=== PATIENT | male | born 1965 | race Hispanic/Latino ===

== ENCOUNTER 2018-12-02 15:44 | Emergency (ER) | payer BC, OTHER ==
[~2018-12-02] VITALS: Ht 180.3 cm; Wt 111.1 kg
--- OUTSIDE RECORDS SUMMARY | 2018-12-02 15:48 | XMS REPORT | Encounter Summary ---
Author Organization Unknown Address [address] [place] [address] Phone [phone] Reason for Visit Medical Complaint Instructions None recorded. Discussion Note: None recorded. Patient educational handouts: No information available. Plan of Care Reminders Provider Appointments None recorded. Lab None recorded. Referral None recorded. Procedures None recorded. Surgeries None recorded. Imaging None recorded. Medications Name Start Date acetaminophen 300 mg-codeine 30 mg tablet anastrozole 1 mg tablet TAKE TWO (2) TABLET(S) BY MOUTH AT 48 HOURS AFTER WEEKLY TRT INJECTIONS. chlorpromazine 50 mg tablet clobetasol 0.05 % topical cream doxepin 5 % topical cream enoxaparin 40 mg/0.4 mL subcutaneous syringe INJECT ONE (1) SYRINGE SUBCUTANEOUSLY ONCE A DAY. fluocinonide 0.1 % topical cream hydrocodone 10 mg-acetaminophen 325 mg tablet ketorolac 10 mg tablet lidocaine 5 % topical ointment lisinopril 5 mg tablet metaxalone 800 mg tablet metformin ER 500 mg tablet,extended release 24 hr naproxen sodium 550 mg tablet Medications Administered None recorded. Vitals None recorded. Lab Results None recorded. Allergies Code Code System Name Reaction Severity Status Onset NKDA Problems Name Status Onset Date Source Eustachian Tube Disorder Active Encounter Otitis Media Active Encounter Common Cold Active Encounter Acute Maxillary Sinusitis Active Encounter Acute Upper Respiratory Infection Active Encounter Allergic Rhinitis Active Encounter Urinary Tract Infectious Disease Active Encounter Low Back Pain Active Encounter Spasm Active Encounter Right Flank Pain Active Encounter Procedures Date Name Performed by Anesth Biceps Tendon Repair Information not available Meniscal Trnspl Knee W/scpe Information not available Vaccine List None recorded. Social History Smoking Status Never Smoker Past Encounters 01/19/2018 LUCIANA Gar-C: [address] [facility] [place] [address], Ph. History of Present Illness None recorded. Review of Systems None recorded. Physical Exam None recorded.
--- OUTSIDE RECORDS SUMMARY | 2018-12-02 15:48 | XMS REPORT | Encounter Summary ---
Author Organization Unknown Address [address] [place] [address] Phone [phone] Reason for Visit Medical Complaint Instructions 1. Acute otitis externa skjyzbqg-zkqlajbei-itpnyakpu 3.5 mg/mL-10,000 unit/mL-1 % ear solution 2. Tachycardia Discussion Note: None recorded. Patient educational handouts: No information available. Plan of Care Patient Instructions use drops as directed. follow up pcp Reminders Provider Appointments None recorded. Lab None recorded. Referral None recorded. Procedures None recorded. Surgeries None recorded. Imaging None recorded. Medications Name Start Date whyqcdze-aifqrgode-cnazbftcs 3.5 mg/mL-10,000 unit/mL-1 % ear solution INSTILL 4 DROPS INTO LEFT EAR(S) BY OTIC ROUTE 3 TIMES PER DAY Medications Administered None recorded. Vitals Height Weight BMI Blood Pressure 5 ft 11 in 235 lbs 32.8 kg/m2 130/80 mm[Hg] Lab Results None recorded. Allergies Code Code System Name Reaction Severity Onset NKDA Problems Name Status Onset Date [...] History Smoking Status Never Smoker Past Encounters 02/16/2017 Acute Otitis Externa; Tachycardia Polo Tovar, [facility]: [address] [place] [address], Ph. History of Present Illness Ear Complaint Reported By: Patient HPI: Location: left. Quality: ears feel full/plugged, muffled. Severity: continuous. Duration: constant. Onset/Timing: still present. Context: no sick contacts, no recent swimming/water in ear, no exposure to second hand smoke, no head trauma, not grinding teeth, no recent air travel. Modifying factors: does not hurt to lie on, or pull on ear, does not hurt to chew. Associated Symptoms: no discharge from the ears, no nose/sinus problems, no popping noise in the ears, no ringing in the ears, no fever, no chills, no dizziness, no vertigo, no headache, no muscle aches, hearing loss, earache Review of Systems:ROS as noted in the HPI Review of Systems Basic Reported By: Patient Physical Exam Adult Basic, Adult Male Complete Reported By: Patient Constitutional: General Appearance: healthy-appearing, well-nourished, well-developed. Level of Distress: NAD. Ambulation: ambulating normally Psychiatric: Mental Status: active and alert Eyes: Lids and Conjunctivae: non-injected, no discharge Ywl-Ohfm-Zveah-Throat: Ears: no lesions on external ear, no outer ear tenderness, EACs clear, TMs clear, TM mobility normal; left ear canal erythema. Hearing: no hearing loss. Nose: no lesions on external nose, nares patent, no septal deviation, nasal passages clear, no sinus tenderness, no nasal discharge. Lips, Teeth, and Gums: no mouth or lip ulcers. Oropharynx: moist mucous membranes, no erythema, no exudates, tonsils not enlarged Neck: Neck: trachea midline. Lymph Nodes: no cervical LAD Lungs: Respiratory effort: no dyspnea, no tachypnea, no use of accessory muscles, no intercostal retractions. Auscultation: breath sounds normal, good air movement Cardiovascular: Heart Auscultation: no murmurs, tachycardia
--- OUTSIDE RECORDS SUMMARY | 2018-12-02 15:48 | XMS REPORT | Continuity of Care Document ---
Author Author [facility] Interface Address Unknown Phone Unavailable Problems Problem Status Onset Date Classification Date Reported Comments Source Body mass index 30+ - obesity 09/30/2018 Diagnosis 10/08/2018 [facility] Elevated blood-pressure reading without diagnosis of hypertension 09/30/2018 Diagnosis 10/08/2018 [facility] Immunization due 09/30/2018 Diagnosis 10/08/2018 [facility] Influenza-like illness 09/30/2018 Diagnosis 10/08/2018 [facility] Nausea and vomiting 09/30/2018 Diagnosis 10/08/2018 [facility] Acute otitis externa 02/16/2017 Diagnosis 02/17/2017 [facility] Tachycardia 02/16/2017 Diagnosis 02/17/2017 [facility] Urinary tract infectious disease 06/04/2016 Diagnosis 06/04/2016 [facility] Right flank pain 06/04/2016 Diagnosis 06/04/2016 [facility] Acute upper respiratory infection 05/01/2016 Diagnosis 05/01/2016 [facility] Acute maxillary sinusitis 05/01/2016 Diagnosis 05/01/2016 [facility] Eustachian tube disorder 02/11/2016 Diagnosis 02/11/2016 [facility] Allergic rhinitis 02/11/2016 Diagnosis 02/11/2016 [facility] Eustachian Tube Disorder Problem 01/20/2018 [facility] Otitis Media Problem 01/20/2018 [facility] Common Cold Problem 01/20/2018 [facility] Acute Maxillary Sinusitis Problem 01/20/2018 [facility] Acute Upper Respiratory Infection Problem 01/20/2018 [facility] Allergic Rhinitis Problem 01/20/2018 [facility] Urinary Tract Infectious Disease Problem 01/20/2018 [facility] Low Back Pain Problem 01/20/2018 [facility] Spasm Problem 01/20/2018 [facility] Right Flank Pain Problem 01/20/2018 [facility] Medications Medication Details Route Status Patient Instructions Ordering Provider Order Date Source Hydrocortisone 10 MG/ML / Neomycin 3.5 MG/ML / Polymyxin B 23955 UNT/ML Otic Solution zyudzcad-swqnsmbyu-xsolxuzbh 3.5 mg/mL-10,000 unit/mL-1 % ear solution INSTILL 4 DROPS INTO LEFT EAR(S) BY OTIC ROUTE 3 TIMES PER DAY Active [facility] Acetaminophen 300 MG / Codeine Phosphate 30 MG Oral Tablet acetaminophen 300 mg-codeine 30 mg tablet Active [facility] anastrozole 1 MG Oral Tablet anastrozole 1 mg tablet TAKE TWO (2) TABLET(S) BY MOUTH AT 48 HOURS AFTER WEEKLY TRT INJECTIONS. Active [facility] Chlorpromazine hydrochloride 50 MG Oral Tablet chlorpromazine 50 mg tablet Active [facility] Clobetasol Propionate 0.5 MG/ML Topical Cream clobetasol 0.05 % topical cream Active [facility] Doxepin Hydrochloride 50 MG/ML Topical Cream doxepin 5 % topical cream Active [facility] 0.4 ML Enoxaparin sodium 100 MG/ML Prefilled Syringe enoxaparin 40 mg/0.4 mL subcutaneous syringe INJECT ONE (1) SYRINGE SUBCUTANEOUSLY ONCE A DAY. Active [facility] Fluocinonide 1 MG/ML Topical Cream fluocinonide 0.1 % topical cream Active [facility] Acetaminophen 325 MG / Hydrocodone Bitartrate 10 MG Oral Tablet hydrocodone 10 mg-acetaminophen 325 mg tablet Active [facility] Ketorolac Tromethamine 10 MG Oral Tablet ketorolac 10 mg tablet Active [facility] Lidocaine 0.05 MG/MG Topical Ointment lidocaine 5 % topical ointment Active [facility] Lisinopril 5 MG Oral Tablet lisinopril 5 mg tablet Active [facility] metaxalone 800 MG Oral Tablet metaxalone 800 mg tablet Active [facility] 24 HR Metformin hydrochloride 500 MG Extended Release Oral Tablet metformin ER 500 mg tablet,extended release 24 hr Active [facility] Naproxen sodium 550 MG Oral Tablet naproxen sodium 550 mg tablet Active [facility] benzonatate 200 MG Oral Capsule benzonatate 200 mg capsule Take 1 capsule 3 times a day by oral route for 7 days. Active [facility] Ondansetron 8 MG Disintegrating Oral Tablet ondansetron [address] 1 tablet every 8 hours by translingual route for 2 days. Active [facility] Oseltamivir 75 MG Oral Capsule [Tamiflu] Tamiflu 75 mg capsule Take 1 capsule twice a day by oral route for 5 days. Active [facility] Medrol (Woodrow) 4 mg tablets in a dose pack Medrol (Woodrow) 4 mg tablets in a dose pack Take as directed on package. Active [facility] 200 ACTUAT Azelastine hydrochloride 0.137 MG/ACTUAT Nasal Inhaler azelastine 137 mcg (0.1 %) nasal spray aerosol Garner 2 spray(s) twice a day by intranasal route as directed. Active [facility] Prednisone 20 MG Oral Tablet prednisone 20 mg tablet Take 1 tablet(s) twice a day by oral route with meals for 4 days. Active [facility] levocetirizine dihydrochloride 5 MG Oral Tablet [Xyzal] Xyzal 5 mg tablet Take 1 tablet(s) every day by oral route at bedtime for 30 days. Active [facility] Amoxicillin 875 MG / Clavulanate 125 MG Oral Tablet [Augmentin] Augmentin 875 mg-125 mg tablet Take 1 tablet every 12 hours by oral route with meals for 7 days. Active [facility] Brompheniramine Maleate 0.4 MG/ML / Dextromethorphan Hydrobromide 2 MG/ML / Pseudoephedrine Hydrochloride 6 MG/ML Oral Solution [Bromfed DM] Bromfed DM 2 mg-30 mg-10 mg/5 mL syrup Take 10 mL every 6 hours by oral route as needed for cough. Active [facility] Amoxicillin 875 MG / Clavulanate 125 MG Oral Tablet amoxicillin 875 mg-potassium clavulanate 125 mg tablet Active [facility] Sulfamethoxazole 800 MG / Trimethoprim 160 MG Oral Tablet [Bactrim] Bactrim DS 800 mg-160 mg tablet Take 1 tablet twice a day by oral route with meals for 10 days. Active [facility] Brompheniramine Maleate 0.4 MG/ML / Dextromethorphan Hydrobromide 2 MG/ML / Pseudoephedrine Hydrochloride 6 MG/ML Oral Solution pdbugqyecfkydnj-adnqzwoqntujfzw-LM 2 mg-30 mg-10 mg/5 mL syrup Active [facility] Allergies, Adverse Reactions, Alerts Substance Category Reaction Severity Reaction type Status Date Reported Comments Source Immunizations Immunization Date Given Site Status Last Updated Comments Source Results Order Name Results Value Reference Range Date Interpretation Comments Source Influenza A negative 09/29/2018 [facility] Influenza B negative 09/29/2018 [facility] Urinalysis macro (dipstick) panel - Urine COLOR : Yellow 06/04/2016 [facility] Urinalysis macro (dipstick) panel - Urine CLARITY : Clear 06/04/2016 [facility] Urinalysis macro (dipstick) panel - Urine LEUKOCYTES : Small 06/04/2016 [facility] Urinalysis macro (dipstick) panel - Urine NITRITES : Negative 06/04/2016 [facility] Urinalysis macro (dipstick) panel - Urine UROBILINOGEN : Normal 06/04/2016 [facility] Urinalysis macro (dipstick) panel - Urine PROTEIN : Trace 06/04/2016 [facility] Urinalysis macro (dipstick) panel - Urine pH : 7.0 06/04/2016 [facility] Urinalysis macro (dipstick) panel - Urine BLOOD : Negative 06/04/2016 [facility] Urinalysis macro (dipstick) panel - Urine SPECIFIC GRAVITY : 1.010 06/04/2016 [facility] Urinalysis macro (dipstick) panel - Urine KETONES : Negative 06/04/2016 [facility] Urinalysis macro (dipstick) panel - Urine BILIRUBIN : Negative 06/04/2016 [facility] Urinalysis macro (dipstick) panel - Urine GLUCOSE Negative 06/04/2016 [facility] Vital Signs Vital Sign Value Date Comments Source Diastolic (mm Hg) 82 09/29/2018 [facility] Height 71 09/29/2018 [facility] Systolic (mm Hg) 120 09/29/2018 [facility] Weight 233 09/29/2018 [facility] Diastolic (mm Hg) 80 02/16/2017 [facility] Height 71 02/16/2017 [facility] Systolic (mm Hg) 130 02/16/2017 [facility] Weight 235 02/16/2017 [facility] Diastolic (mm Hg) 70 06/04/2016 [facility] Height 71 06/04/2016 [facility] Systolic (mm Hg) 120 06/04/2016 [facility] Weight 238 06/04/2016 [facility] Diastolic (mm Hg) 80 05/01/2016 [facility] Height 71 05/01/2016 [facility] Systolic (mm Hg) 130 05/01/2016 [facility] Weight 248 05/01/2016 [facility] Diastolic (mm Hg) 80 02/11/2016 [facility] Height 71 02/11/2016 [facility] Systolic (mm Hg) 134 02/11/2016 [facility] Weight 235 02/11/2016 [facility] Diastolic (mm Hg) 83 12/12/2015 [facility] Height 71 12/12/2015 [facility] Systolic (mm Hg) 140 12/12/2015 [facility] Weight 241 12/12/2015 [facility] Encounters Location Location Details Encounter Type Encounter Number Reason For Visit Attending Provider ADM Date DC Date Status Source [place] - [facility] - [id number] Alix La, GAUGE MACHINE OPERATOR: [address] [place] [address], Ph. [id number] Alix Tovar 12/12/2015 [facility] [place] [facility] - [id number] Alix Tovar, GAUGE MACHINE OPERATOR: [address] [place] [address], Ph. [id number] Alix Tovar 02/11/2016 [facility] [place] [facility] - [id number] Alix Tovar, GAUGE MACHINE OPERATOR: [address] [place] [address], Ph. [id number] Alix Tovar 05/01/2016 [facility] [place] [facility] - [id number] Venessa Mendoza, GAUGE MACHINE OPERATOR: [address] [place] [address], Ph. [phone] [id number] Venessa Mendoza 06/04/2016 [facility] [place] - [facility] - [id number] FUNMILAYO WooP-C: [address] [place] [address], Ph. [phone] [id number] Polo Tovar 02/16/2017 [facility] [place] [facility] - [id number] Tabitha Orellanaroy, GAU[employer] MACHINE OPERATOR-C: [address] [place] [address], Ph. [id number] Tabitha Soliman 01/19/2018 [facility] [place] [facility] - [id number] Mahnaz Gillespie, GAUGE MACHINE OPERATOR-C: [address] [place] [address], Ph. [id number] Mahnaz Gillespie 09/29/2018 [facility] [place] [facility] - [id number] Mahnaz Gillespie, [employer] MACHINE OPERATOR-C: [address] [place] [address], Ph. [id number] Mahnaz Gillespie 09/29/2018 [facility] Procedures Procedure Code Date Perfomer Comments Source Anesth Biceps Tendon Repair [facility] Meniscal Trnspl Knee W/scpe [facility] Anesth Biceps Tendon Repair 30114 [facility] Meniscal Trnspl Knee W/scpe [address] [facility] Shoulder Joint Surgery [address] [facility]
--- OUTSIDE RECORDS SUMMARY | 2018-12-02 15:48 | XMS REPORT | Encounter Summary ---
Author Organization Unknown Address [address] [place] [address] Phone [phone] Reason for Visit Medical Complaint Instructions 1. Influenza-like illness Tamiflu 75 mg capsule benzonatate 200 mg capsule influenza (flu): care instructions rapid flu (A+B) 2. Nausea and vomiting nausea and vomiting: care instructions ondansetron 8 mg disintegrating tablet 3. Immunization due 4. Elevated blood-pressure reading without diagnosis of hypertension elevated blood pressure: care instructions 5. Body mass index 30+ - obesity body mass index: care instructions Discussion Note Take charge of your health handout given and discussed. SE of medictions discussed and pt verbalized understanding. Plan of Care Patient Instructions How can you care for yourself at home? Get plenty of rest. Drink plenty of fluids, enough so that your urine is light yellow or clear like water. If you have kidney, heart, or liver disease and have to limit fluids, talk with your doctor before you increase the amount of fluids you drink. Take an fkou-oph-moyhwdm pain medicine if needed, such as acetaminophen (Tylenol), ibuprofen (Advil, Motrin), or naproxen (Aleve), to relieve fever, headache, and muscle aches. Read and follow all instructions on the label. No one younger than 20 should take aspirin. It has been linked to Amanda syndrome, a serious illness. Do not smoke. Smoking can make the flu worse. If you need help quitting, talk to your doctor about stop-smoking programs and medicines. These can increase your chances of quitting for good. Breathe moist air from a hot shower or from a sink filled with hot water to help clear a stuffy nose. Before you use cough and cold medicines, check the label. These medicines may not be safe for young children or for people with certain health problems. If the skin around your nose and lips becomes sore, put some petroleum jelly on the area. To ease coughing: Drink fluids to soothe a scratchy throat. Suck on cough drops or plain hard candy. Take an yftr-bmu-tbqqsrr cough medicine that contains dextromethorphan to help you get some sleep. Read and follow all instructions on the label. Raise your head at night with an extra pillow. This may help you rest if coughing keeps you awake. Take any prescribed medicine exactly as directed. Call your doctor if you think you are having a problem with your medicine. To avoid spreading the flu Wash your hands regularly, and keep your hands away from your face. Stay home from school, work, and other public places until you are feeling better and your fever has been gone for at least 24 hours. The fever needs to have gone away on its own without the help of medicine. Ask people living with you to talk to their doctors about preventing the flu. They may get antiviral medicine to keep from getting the flu from you. To prevent the flu in the future, get a flu vaccine every fall. Encourage people living with you to get the vaccine. Cover your mouth when you cough or sneeze. When should you call for help? Call 911 anytime you think you may need emergency care. For example, call if: You have severe trouble breathing. Call your doctor now or seek immediate medical care if: You have new or worse trouble breathing. You seem to be getting much sicker. You feel very sleepy or confused. You have a new or higher fever. You get a new rash. Watch closely for changes in your health, and be sure to contact your doctor if: You begin to get better and then get worse. You are not getting better after 1 week. Reminders Provider Appointments None recorded. Lab Rapid Flu (A+B) 10/08/2018 [facility] Referral None recorded. Procedures None recorded. Surgeries None recorded. Imaging None recorded. Medications Name Start Date anastrozole 1 mg tablet TAKE TWO (2) TABLET(S) BY MOUTH AT 48 HOURS AFTER WEEKLY TRT INJECTIONS. benzonatate 200 mg capsule Take 1 capsule 3 times a day by oral route for 7 days. ondansetron [address] 1 tablet every 8 hours by translingual route for 2 days. Tamiflu 75 mg capsule Take 1 capsule twice a day by oral route for 5 days. Medications Administered None recorded. Vitals Height Weight BMI Blood Pressure 5 ft 11 in 233 lbs 32.5 kg/m2 (1) 120/82 mm[Hg] (2) 120/82 mm[Hg] Lab Results Date Name Specimen Result Interpretation Description Value Range Status Address Rapid Flu (A+B) Influenza a negative [facility]: [address] [place] [address] Influenza B negative [facility]: [address] [place] [address] Allergies Code Code System Name Reaction Severity Status Onset NKDA Problems No Known Problems Procedures Date Name Performed by Shoulder Joint Surgery Information not available Anesth Biceps Tendon Repair Information not available Meniscal Trnspl Knee W/scpe Information not available Vaccine List None recorded. Social History Smoking Status Never Smoker Past Encounters 09/29/2018 Influenza-like Illness; Nausea and Vomiting; Immunization Due; Elevated Blood- pressure Reading without Diagnosis of Hypertension; Body Mass Index 30+ - Obesity Arielareva GarnerFUNMILAYO rodriguezP-C: [address] [place] [address], Ph. History of Present Illness Dajkwnr-Qyhqb-Jyl Reported By: Patient HPI: Quality: symptoms worse in the evening. Duration: constant, 1 days. Severity: subjective temperature. Context: no tick/insect bites, no recent travel, no new medications, ill contacts. Associated Symptoms: no headache, no rash, no lethargy, fever/chills, muscle aches, tired (fatigue), cough; nausea, diarrhea & vomiting. Modifying Factors OTC medication Review of Systems:ROS as noted in the HPI Review of Systems Basic Reported By: Patient Physical Exam Adult Basic, Adult Male Complete Reported By: Patient Constitutional: General Appearance: healthy-appearing, well-nourished, well-developed, overweight. Level of Distress: moderate distress, acutely ill. Ambulation: ambulating normally Psychiatric: Mental Status: active and alert. Orientation: to time, to place, to person Eyes: Lids and Conjunctivae: no discharge, no pallor, injected Gcs-Cztt-Fopoe-Throat: Ears: no lesions on external ear, no outer ear tenderness, EACs clear, TMs clear, TM mobility normal. Hearing: no hearing loss. Nose: no lesions on external nose, nares patent, no septal deviation, nasal passages clear, no sinus tenderness, no nasal discharge. Lips, Teeth, and Gums: no mouth or lip ulcers, no bleeding gums, normal dentition. Oropharynx: moist mucous membranes, no erythema, no exudates, tonsils not enlarged Neck: Lymph Nodes: no cervical LAD Lungs: Respiratory effort: no dyspnea, no tachypnea, no use of accessory muscles, no intercostal retractions. Auscultation: breath sounds normal, good air movement Cardiovascular: Heart Auscultation: RRR, no murmurs Skin: Inspection and palpation: no rash
--- OUTSIDE RECORDS SUMMARY | 2018-12-02 15:48 | XMS REPORT | Encounter Summary ---
Author Organization Unknown Address [address] [place] [address] Phone [phone] Reason for Visit Medical Complaint Instructions 1. Influenza-like illness Tamiflu 75 mg capsule benzonatate 200 mg capsule influenza (flu): care instructions 2. Nausea and vomiting nausea and vomiting: [...] amount of fluids you drink. Take an hpfx-bzc-ldplsxx pain medicine if needed, such as acetaminophen [...] drops or plain hard candy. Take an ntxp-xdj-ullhyuq cough medicine that contains dextromethorphan to help [...] week. Reminders Provider Appointments None recorded. Lab None [...] 120/82 mm[Hg] (2) 120/82 mm[Hg] Lab Results None recorded. Allergies Code [...] Body Mass Index 30+ - Obesity Arielareva Gillespie NURSING ASSOCIATE-C: [address] [place] [address], Ph. History of Present Illness Bdmwznd-Lslli-Gms Reported By: Patient HPI: Quality: symptoms worse [...] and Conjunctivae: no discharge, no pallor, injected Szx-Oyoq-Ubyxc-Throat: Ears: no lesions on external ear, no [...]
--- OUTSIDE RECORDS SUMMARY | 2018-12-02 15:48 | XMS REPORT | Encounter Summary ---
Author Organization Unknown Address [address] [place] [address] Phone [phone] Reason for Visit Medical Complaint; ear pain x 2 weeks Instructions 1. Allergic rhinitis Xyzal 5 mg tablet prednisone 20 mg tablet azelastine 137 mcg (0.1 %) nasal spray aerosol 2. Eustachian tube disorder Discussion Note: None recorded. Patient educational handouts: No information available. Plan of Care Patient Instructions Continue with your FLonase and stop claritin. Take prescribed medication as directed. If symptoms still not improving in the next 3-5days, follow up with ENT or surveillance investigator. Reminders Provider Appointments None recorded. Lab None recorded. Referral None recorded. Procedures None recorded. Surgeries None recorded. Imaging None recorded. Medications Name Start Date azelastine 137 mcg (0.1 %) nasal spray aerosol [place] 2 spray(s) twice a day by intranasal route as directed. prednisone 20 mg tablet Take 1 tablet(s) twice a day by oral route with meals for 4 days. Xyzal 5 mg tablet Take 1 tablet(s) every day by oral route at bedtime for 30 days. Medications Administered None recorded. Vitals Height Weight BMI Blood Pressure 5 ft 11 in 235 lbs 32.8 134/80 Lab Results None recorded. Allergies Name Reaction Severity Onset NKDA Problems Name Status Onset Date Source Eustachian Tube Disorder Active Encounter Otitis Media Active Encounter Common Cold Active Encounter Allergic Rhinitis Active Encounter Low Back Pain Active Encounter Spasm Active Encounter Procedures Date Name Performed by Anesth Biceps Tendon Repair Information not available Meniscal Trnspl Knee W/scpe Information not available Vaccine List None recorded. Social History Smoking Status Never Smoker Past Encounters 02/11/2016 Allergic Rhinitis; Eustachian Tube Disorder FUNMILAYO [facility]: [address] [place] [address], Ph. History of Present Illness Ear Complaint Reported By: Patient HPI: Location: left. Severity: intermittent. Duration: intermittent; 2 weeks. Onset/Timing: gradual. Context: no sick contacts, no recent swimming/water in ear, no exposure to second hand smoke, no head trauma, not grinding teeth, no recent air travel. Modifying factors: does not hurt to lie on, or pull on ear, does not hurt to chew, OTC medication. Associated Symptoms: no discharge from the ears, no hearing loss, no nose/sinus problems, no ringing in the ears, no fever, no chills, no earache, no dizziness, no vertigo, no headache, popping noise in the ears Review of Systems Basic Reported By: Patient Constitutional: Constitutional: no fever Eyes: Eyes: no eye complaints Qqrg-Dqom-Pdids-Throat: Ears: ear pain. Nose: nose/sinus problems. Mouth/Throat: no sore throat, no bleeding gums, no mouth complaints, no teeth problems Cardiovascular: Cardiovascular: no chest pain, no shortness of breath, no known heart murmur Respiratory: Respiratory: no cough, no wheezing, no shortness of breath Gastrointestinal: Gastrointestinal: no abdominal pain, no vomiting / diarrhea Genitourinary: Genitourinary: no urinary complaints, no discharge Musculoskeletal: Musculoskeletal: no muscle aches, no muscle weakness, no arthralgias/joint pain, no back pain Skin: Skin: no abnormal / changing mole, no jaundice, no rashes Neurologic: Neurologic: no loss of consciousness, no weakness, no numbness, no seizures, no dizziness, no headaches Physical Exam Adult Basic, Adult Male Complete Constitutional: General Appearance: healthy-appearing, well-nourished, well-developed, overweight. Level of Distress: NAD. Ambulation: ambulating normally Psychiatric: Mental Status: active and alert. Orientation: to time, to place, to person Eyes: Lids and Conjunctivae: non-injected, no discharge, no pallor. Pupils: PERRLA. Corneas: grossly intact. EOM: EOMI. Lens: clear. Sclerae: non-icteric. Vision: acuity grossly intact, peripheral vision grossly intact Eqz-Sxxs-Zsnuh-Throat: Ears: no lesions on external ear, no outer ear tenderness, EACs clear, TMs clear, middle ear fluid. Hearing: no hearing loss. Nose: no lesions on external nose, nares patent, no septal deviation, nasal passages clear, no sinus tenderness, no nasal discharge; nasal turbinate hypertrophic. Lips, Teeth, and Gums: no mouth or lip ulcers, no bleeding gums, normal dentition. Oropharynx: moist mucous membranes, no erythema, no exudates, tonsils not enlarged Neck: Neck: supple, trachea midline, no masses, FROM. Lymph Nodes: no cervical LAD, no supraclavicular LAD. Thyroid: no enlargement, non-tender, no nodules Lungs: Respiratory effort: no dyspnea, no tachypnea, no use of accessory muscles, no intercostal retractions. Auscultation: breath sounds normal, good air movement Cardiovascular: Heart Auscultation: RRR, no murmurs
--- OUTSIDE RECORDS SUMMARY | 2018-12-02 15:48 | XMS REPORT | Encounter Summary ---
Author Organization Unknown Address [address] [place] [address] Phone [phone] Reason for Visit Medical Complaint; lt ear pain x 2 weeks Instructions 1. Eustachian tube disorder middle ear fluid: care instructions Medrol ([place]) 4 mg tablets in a dose pack 2. Allergic rhinitis Discussion Note: None recorded. Plan of Care Patient Instructions Start on Flonase 2 sprays each nostril daily x 7 days along with [place] 180mg daily. If symptoms do not improve in 3-5days follow with constant pain fever, call clinic or see pcp. Reminders Provider Appointments None recorded. Lab None recorded. Referral None recorded. Procedures None recorded. Surgeries None recorded. Imaging None recorded. Medications Name Start Date Medrol ([place]row) 4 mg tablets in a dose pack Take as directed on package. Medications Administered None recorded. Vitals Height Weight BMI Blood Pressure 5 ft 11 in 241 lbs 33.6 140/83 Lab Results None recorded. Allergies Name Reaction [...] History Smoking Status Never Smoker Past Encounters 12/12/2015 Eustachian Tube Disorder; Allergic Rhinitis Alix Tovar, SCOUT: [address] [place] [address], Ph. History of Present Illness Ear Complaint Reported By: Patient HPI: Location: left. Quality: muffled, sharp. Severity: worse. Duration: intermittent. Onset/Timing: still present. Context: no sick contacts, no recent swimming/water in ear, no exposure to second hand smoke, no head trauma, not grinding teeth, no recent air travel. Modifying factors: does not hurt to lie on, or pull on ear, does not hurt to chew, OTC medication. Associated Symptoms: no discharge from the ears, no nose/sinus problems, no ringing in the ears, no fever, no chills, no dizziness, no vertigo, no headache, popping noise in the ears, earache Review of Systems Basic Reported By: Patient Constitutional: Constitutional: no fever Eyes: Eyes: no eye complaints Dazz-Oaso-Xangv-Throat: Ears: ear pain. Nose: no nose/sinus problems. Mouth/Throat: no sore throat, no [...] no dizziness, no headaches Physical Exam Adult Male Complete, Adult Basic Constitutional: General Appearance: healthy-appearing, well-nourished, well-developed. Level of Distress: NAD. Ambulation: ambulating normally Psychiatric: Mental Status: active and alert. Orientation: to time, to place, to person Eyes: Lids and Conjunctivae: non-injected, no discharge, no pallor. Pupils: PERRLA. Corneas: grossly intact. EOM: EOMI. Lens: clear. Sclerae: non-icteric. Vision: peripheral vision grossly intact, acuity grossly intact Pwl-Djgb-Wxxkv-Throat: Ears: no lesions on external ear, no outer ear tenderness, EACs clear, TMs clear, middle ear fluid. Nose: no lesions on external nose, nares patent, no septal deviation, nasal passages clear, no sinus tenderness, no nasal discharge; nasal turbinate hypertrophic. Lips, Teeth, and Gums: no mouth or lip ulcers, no bleeding gums, normal dentition. Oropharynx: moist mucous membranes, no erythema, no exudates, tonsils not enlarged. Hearing: no hearing loss Neck: Neck: supple, trachea midline, no masses, FROM. Lymph Nodes: no cervical LAD, no supraclavicular LAD. Thyroid: no enlargement, non-tender, no nodules Lungs: Respiratory effort: no dyspnea, no tachypnea, no use of accessory muscles, no intercostal retractions. Auscultation: breath sounds normal, good air movement Cardiovascular: Heart Auscultation: RRR, no murmurs
--- OUTSIDE RECORDS SUMMARY | 2018-12-02 15:49 | XMS REPORT | Encounter Summary ---
Author Organization Unknown Address [address] [place] [address] Phone [phone] Reason for Visit Medical Complaint Instructions 1. Urinary tract infectious disease urinalysis, dipstick culture, urine urinary tract infections in men: care instructions Bactrim DS 800 mg-160 mg tablet 2. Right flank pain flank pain: care instructions Discussion Note: None recorded. Plan of Care Patient Instructions Please drink plenty of water and cranberry juice, complete antibiotic course even after symptoms resolve. Please go to ER/UC/PCP if symptoms get worse or doesn't get better in 3 days. Please follow up with PCP/UC/ER regarding flank pain for further evaluation. Please read all the side effects of the medications, if you develop any side effects immediately stop the medication and please contact your PCP/UC[facility]ER [facility] or call 911. Patient verbalizes understanding and agrees to plan. Reminders Provider Appointments None recorded. Lab Urinalysis, Dipstick 06/04/2016 [facility] Culture, Urine 06/04/2016 [facility] Referral None recorded. Procedures None recorded. Surgeries None recorded. Imaging None recorded. Medications Name Start Date amoxicillin 875 mg-potassium clavulanate 125 mg tablet anastrozole 1 mg tablet Bactrim DS 800 mg-160 mg tablet Take 1 tablet twice a day by oral route with meals for 10 days. cogbotvudsuberv-ilvljmebditxxom-AU 2 mg-30 mg-10 mg/5 mL syrup Medications Administered None recorded. Vitals Height Weight BMI Blood Pressure 5 ft 11 in 238 lbs 33.2 120/70 Lab Results Date Name Result Description Value Range Status Urinalysis, Dipstick Color : Yellow Clarity : Clear Leukocytes : Small Nitrites : Negative Urobilinogen : Normal Protein : Trace Ph : 7.0 Blood : Negative Specific Thayer : 1.010 Ketones : Negative Bilirubin : Negative Glucose Negative Allergies Name Reaction Severity Onset NKDA Problems [...] History Smoking Status Never Smoker Past Encounters 06/04/2016 Urinary Tract Infectious Disease; Right Flank Pain Venessa Mendoza, [employer]: [address] [place] [address], Ph. History of Present Illness Wgjn-YTE-Vtonvbc-Hernia Reported By: Patient HPI: Onset/Timing: better. Context: no prior history of STDs, no known exposure to STD. Associated Symptoms: no fever/chills, no penile lesions/sores, no scrotal lesions/sores, no penile discharge, no jaundice, no blood in the urine, no pain during urination, flank pain, urgency Notes: Pt denies dysuria, blood in the urine, urine hesistancy, abdominal pain or penile discharge. Review of Systems Basic Reported By: Patient Constitutional: Constitutional: no fever Eyes: Eyes: no eye complaints Wqae-Fkvw-Nnsub-Throat: Ears: no ear complaints. Nose: no nose/sinus problems. Mouth/Throat: no sore throat, no bleeding gums, no mouth complaints, no teeth problems Cardiovascular: Cardiovascular: no chest pain, no shortness of breath, no known heart murmur Respiratory: Respiratory: no cough, no wheezing, no shortness of breath Gastrointestinal: Gastrointestinal: no abdominal pain, no vomiting / diarrhea Genitourinary: Genitourinary: no urinary complaints, no discharge, urinary urgency Musculoskeletal: Musculoskeletal: no muscle aches, no muscle weakness, no arthralgias/joint pain, back pain Skin: Skin: no abnormal / changing mole, no jaundice, no rashes Neurologic: Neurologic: no loss of consciousness, no weakness, no numbness, no seizures, no dizziness, no headaches Physical Exam Adult Basic, Adult Male Complete Constitutional: General Appearance: healthy-appearing, well-nourished, well-developed. Level of Distress: NAD. Ambulation: ambulating normally Psychiatric: Mental Status: active and alert. Orientation: to time, to place, to person Lungs: Respiratory effort: no dyspnea, no tachypnea. Auscultation: breath sounds normal, good air movement Cardiovascular: Heart Auscultation: RRR, no murmurs Musculoskeletal:: Motor Strength and Tone: normal motor strength, normal tone, normal. Joints, Bones, and Muscles: normal movement of all extremities, no tenderness. Extremities: no cyanosis, no edema Neurologic: Gait and Station: normal gait Skin: Inspection and palpation: no rash Abdomen: Bowel Sounds: normal. Inspection and Palpation: soft, no guarding, no rebound tenderness, no masses, no CVA tenderness, suprapubic tenderness. Hernia: none palpable
--- OUTSIDE RECORDS SUMMARY | 2018-12-02 15:49 | XMS REPORT | Encounter Summary ---
Author Organization Unknown Address [address] [place] [address] Phone [phone] Reason for Visit Medical Complaint; headache, congestion, body aches, low grade temp x 5 days Instructions 1. Acute upper respiratory infection Bromfed DM 2 mg-30 mg-10 mg/5 mL syrup 2. Acute maxillary sinusitis Augmentin 875 mg-125 mg tablet Discussion Note: None recorded. Patient educational handouts: No information available. Plan of Care Patient Instructions Take antibiotic as prescribed. Handwashing. Increase fluid intake and plenty of rest. May take tynenol/motrin for pain. may use cloraseptic throat spray for sore throat. If no improvement in 3-5 days, or worsening of symptoms, see primary care physician or call clinic. Reminders Provider Appointments None recorded. Lab None recorded. Referral None recorded. Procedures None recorded. Surgeries None recorded. Imaging None recorded. Medications Name Start Date anastrozole 1 mg tablet Augmentin 875 mg-125 mg tablet Take 1 tablet every 12 hours by oral route with meals for 7 days. Bromfed DM 2 mg-30 mg-10 mg/5 mL syrup Take 10 mL every 6 hours by oral route as needed for cough. Medications Administered None recorded. Vitals Height Weight BMI Blood Pressure 5 ft 11 in 248 lbs 34.6 130/80 Lab Results None recorded. Allergies Name Reaction Severity Onset NKDA Problems Name Status Onset Date Source Eustachian Tube Disorder Active Encounter Otitis Media Active Encounter Common Cold Active Encounter Acute Maxillary Sinusitis Active Encounter Acute Upper Respiratory Infection Active Encounter Allergic Rhinitis Active Encounter Low Back Pain Active Encounter Spasm Active Encounter Procedures Date Name Performed by Anesth Biceps Tendon Repair Information not available Meniscal Trnspl Knee W/scpe Information not available Vaccine List None recorded. Social History Smoking Status Never Smoker Past Encounters 05/01/2016 Acute Upper Respiratory Infection; Acute Maxillary Sinusitis Alix Tovar, [employer]: [address] [place] [address], Ph. History of Present Illness Ekcfu-Giwywuepns-Thbmxkm Reported By: Patient HPI: Location: head/sinuses. Quality: productive cough, colored phlegm, nasal/sinus congestion. Duration: 5days. Severity: moderate. Onset/Timing: gradual. Context: no sick contacts, no foreign travel, non-smoker. Modifying factors: OTC medication. Associated Symptoms: no shortness of breath, no wheezing, no change in number of pillows needed to sleep at night, no sweats, no significant weight gain, no significant weight loss, no morning cough, no sore throat, no vomiting, no diarrhea, no rash, no nausea, green sputum Review of Systems Basic Reported By: Patient Constitutional: Constitutional: fever Eyes: Eyes: no eye complaints Plfk-Sccv-Uiayt-Throat: Ears: no ear complaints. Nose: nose/sinus problems. Mouth/Throat: no sore throat, no bleeding gums, no mouth complaints, no teeth problems Cardiovascular: Cardiovascular: no chest pain, no shortness of breath, no known heart murmur Respiratory: Respiratory: no wheezing, no shortness of breath, cough Gastrointestinal: Gastrointestinal: no abdominal pain, no vomiting [...] acuity grossly intact, peripheral vision grossly intact Woj-Urdy-Tmbhs-Throat: Ears: no lesions on external ear, no outer ear tenderness, EACs clear, TMs clear. Hearing: no hearing loss. Nose: no lesions on external nose, nares patent, no septal deviation, nasal passages clear, sinus tenderness, nasal discharge--purulent, post nasal drip. Lips, Teeth, and Gums: no mouth or lip ulcers, no bleeding gums, normal dentition. Oropharynx: moist mucous membranes, no exudates, tonsils not enlarged, erythema Neck: Neck: supple, trachea midline, no masses, FROM. Lymph Nodes: no supraclavicular LAD, anterior cervical LAD. Thyroid: no enlargement, non-tender, no nodules Lungs: Respiratory effort: no dyspnea, no tachypnea, no use of accessory muscles, no intercostal retractions. Auscultation: good air movement, rhonchi Cardiovascular: Heart Auscultation: RRR, no murmurs
[2018-12-02 16:27] VITALS: BP 148/93
== END 2018-12-02 17:10 | disposition home or self-care (01) ==
LOC: ER 15:44
DX: R42 Dizziness and giddiness (principal); R20.2 Paresthesia of skin; G56.01 Carpal tunnel syndrome, right upper limb; E11.9 Type 2 diabetes mellitus without complications
CPT/HCPCS: 99282